=== PATIENT | male | born 1960 | race Caucasian/White ===

== ENCOUNTER → 2016-11-29 | Outpatient (CLI) | payer BC, OTHER ==
[~2016-11-29] MED LIST: ALBUAER2 INH; CRG40 PO; LSX20 PO
--- NOTE | 2016-11-29 15:44 | DIAGNOSTIC IMAGING REPORT ---
CT OF THE CHEST WITHOUT IV CONTRAST CLINICAL HISTORY: Dyspnea on exertion. Sarcoidosis. Pulmonary nodule. COMPARISON STUDY: Chest CT October 28, 2012 and PET/CT November 13, 2012 CT DOSE: 301.32 mGy.cm TECHNIQUE: Axial images of the chest were obtained without IV contrast. Images were reviewed in the axial, sagittal, and coronal planes. IV contrast was not administered for this examination. FINDINGS: There are multiple minimally enlarged partially calcified mediastinal and bilateral hilar lymph nodes which are similar to exam of October 28, 2012. The size of the heart is normal. There is no pericardial effusion. The central airways are patent. Note is again made of bilateral upper lobe perihilar mass-like opacities with architectural distortion. Innumerable nodules throughout both lungs are noted. The appearance is similar to exam of October 28, 2012. No superimposed consolidation is present. There is no pneumothorax or pleural effusion. Bony thorax is unremarkable. There is bilateral gynecomastia. Visualized portions of the upper abdomen demonstrate stable moderate splenomegaly. There are upper abdominal collaterals. The liver is cirrhotic. Nodularity liver is again noted. Sensitivity for detection of hepatic lesions is diminished on this unenhanced exam. Multiple mildly enlarged upper abdominal lymph nodes remain unchanged. IMPRESSION: 1. No significant change in appearance of the chest since exam of October 28, 2012 with bilateral upper lobe mass-like opacities suggestive of progressive massive fibrosis, architectural distortion and nodules throughout both lungs. The findings are consistent with the history of sarcoidosis. 2. No change in minimally enlarged partially calcified mediastinal and bilateral hilar lymph nodes. 3. Cirrhosis with evidence of portal hypertension including splenomegaly and varices formation. Sensitivity for detection of hepatic lesions is diminished on this unenhanced exam but none are identified. Electronically signed by: Jeremi Quiroz M.D. 11/29/2016 3:42 PM
--- NOTE | 2016-12-01 09:51 | ECHOCARDIOGRAM REPORT ---
*NOTICE TO RECEIVING [employer] This information is strictly Confidential and protected under [place] law. [place] law prohibits you from making any further disclosure of this information unless further disclosure is expressly permitted by the written consent of the person to whom it pertains or is authorized by law. A general authorization for the release of medical or other information is not sufficient for this purpose. Hospital accepts no responsibility if the information is made available to any other person, INCLUDING THE PATIENT. Interpretation Summary * Name: SHERRY QUIÑONEZ Study Date: 11/29/2016 02:00 PM BP: 138/74 mmHg * Patient Location: [facility] HR: 71 * : 1960 (M/d/yyyy) Gender: Male Height: 67 in * Age: 56 yrs Ethnicity: [place] Weight: 175 lb * Ordering Physician: Tito Martins * Referring Physician: Tito Martins. * Performed By: Lizbeth Johnson RCS * * Reason For Study: ADEN / SARCOIDOSIS / ALCOHOLIC LIVER DAMAGE / EVAL FOR HEPATOPULMONARY SYNDROME * BSA: 1.9 m2 * -- Conclusions -- * Injection of contrast documented no interatrial shunt. * Bubble contrast appears in the left atrium on the 8th beat (generally appears within 7 beats in hepatopulmonary syndrome). Procedure Details * A complete two-dimensional transthoracic echocardiogram was performed (2D, M-mode, Doppler and color flow Doppler). * A saline contrast injection was performed to assess for cardiac shunting. * The injection was performed through an intravenous line in the right arm. * The attending nurse who injected the saline contrast was LIMA PERALTA CPL, RN. * A total of 30 cc of agitated saline was given. Left Ventricle * The left ventricle is normal in size. * There is moderate concentric left ventricular hypertrophy. * Left ventricular systolic function is normal. * Ejection Fraction = 60-65%. * The left ventricular wall motion is normal. Right Ventricle * The right ventricle is mildly dilated. * The right ventricular systolic function is normal. Atria * The left atrial size is normal. * The right atrium is mildly dilated. * Injection of contrast documented no interatrial shunt. * Bubble contrast appears in the left atrium on the 8th beat (generally appears within 7 beats in hepatopulmonary syndrome). Mitral Valve * The mitral valve is normal in structure and function. * There is no mitral regurgitation noted. Tricuspid Valve * The tricuspid valve is normal in structure and function. * There is mild tricuspid regurgitation. * Right ventricular systolic pressure is elevated at 30-40mmHg. Aortic Valve * The aortic valve is trileaflet. * Aortic valve sclerosis mild, without significant aortic valvular stenosis. * No aortic regurgitation is present. Pulmonic Valve * The pulmonary valve is not well seen, but the Doppler examination is normal without significant regurgitation or stenosis. * Mild pulmonic valvular regurgitation. Great Vessels * Aortic arch of normal dimension. * No obvious dissection could be visualized. * The pulmonary artery is normal size. Pericardium/Pleural * There is no pericardial effusion. Right Ventricle * The right ventricular wall motion is normal. Great Vessels * Normal inferior vena cava diameter and respiratory variation suggests normal central venous pressure. Left Ventricular Diastolic Function * Grade I diastolic dysfunction, (abnormal relaxation pattern). MMode 2D Measurements and Calculations IVSd 1.4 cm IVSs 1.5 cm LVIDd 4.4 cm LVIDs 2.9 cm LVPWd 0.92 cm LVPWs 1.4 cm IVS/LVPW 1.5 FS 34.6 % EDV(Teich) 89.1 ml ESV(Teich) 32.2 ml EF(Teich) 63.9 % EDV(cubed) 87.0 ml ESV(cubed) 24.4 ml EF(cubed) 72.0 % % IVS thick 5.5 % % LVPW thick 54.9 % LV mass(C)d 186.2 grams LV mass(C)dI 97.5 grams/m\S\2 LV mass(C)s 144.3 grams LV mass(C)sI 75.5 grams/m\S\2 SV(Teich) 56.9 ml SI(Teich) 29.8 ml/m\S\2 SV(cubed) 62.6 ml SI(cubed) 32.8 ml/m\S\2 Ao root diam 3.9 cm Ao root area 11.7 cm\S\2 ACS 2.3 cm LA dimension 3.6 cm LA/Ao 0.93 LVOT diam 2.0 cm LVOT area 3.3 cm\S\2 LVAd ap4 40.7 cm\S\2 LVLd ap4 9.2 cm EDV(MOD-sp4) 145.6 ml EDV(sp4-el) 153.2 ml LVAs ap4 22.2 cm\S\2 LVLs ap4 7.0 cm ESV(MOD-sp4) 58.4 ml ESV(sp4-el) 60.0 ml EF(MOD-sp4) 59.9 % EF(sp4-el) 60.8 % LVAd ap2 37.2 cm\S\2 LVLd ap2 8.9 cm EDV(MOD-sp2) 128.3 ml EDV(sp2-el) 131.8 ml LVAs ap2 18.3 cm\S\2 LVLs ap2 6.4 cm ESV(MOD-sp2) 44.8 ml ESV(sp2-el) 44.5 ml EF(MOD-sp2) 65.1 % EF(sp2-el) 66.2 % LVLd %diff -2.90 % EDV(MOD-bp) 137.7 ml LVLs %diff -9.23 % ESV(MOD-bp) 53.5 ml EF(MOD-bp) 61.2 % SV(MOD-sp4) 87.1 ml SI(MOD-sp4) 45.6 ml/m\S\2 SV(MOD-sp2) 83.6 ml SI(MOD-sp2) 43.7 ml/m\S\2 SV(MOD-bp) 84.2 ml SI(MOD-bp) 44.1 ml/m\S\2 SV(sp4-el) 93.2 ml SI(sp4-el) 48.8 ml/m\S\2 SV(sp2-el) 87.3 ml SI(sp2-el) 45.7 ml/m\S\2 Doppler Measurements and Calculations MV E max mark 83.0 cm/sec MV A max mark 92.7 cm/sec MV E/A 0.90 MV P1/2t max mark 86.3 cm/sec MV P1/2t 82.2 msec MVA(P1/2t) 2.7 cm\S\2 MV dec slope 307.5 cm/sec\S\2 MV dec time 0.33 sec Ao V2 max 164.4 cm/sec Ao max PG 10.8 mmHg Ao max PG (full) 4.2 mmHg GARTH(V,A) 2.6 cm\S\2 GARTH(V,D) 2.6 cm\S\2 LV V1 max PG 6.6 mmHg LV V1 max 128.6 cm/sec PA V2 max 110.6 cm/sec PA max PG 4.9 mmHg PI max mark 173.0 cm/sec PI max PG 12.0 mmHg PI dec slope 238.5 cm/sec\S\2 PI P1/2t 212.5 msec TR max mark 283.0 cm/sec
== END | disposition home or self-care (01) ==
LOC: C.CTS 12:06
PROVIDERS: ATTEND Internal Medicine Critical Care Medicine
DX: D86.9 Sarcoidosis, unspecified (principal); K70.9 Alcoholic liver disease, unspecified; R06.09 Other forms of dyspnea; J18.9 Pneumonia, unspecified organism; R91.8 Other nonspecific abnormal finding of lung field; K74.60 Unspecified cirrhosis of liver; R16.1 Splenomegaly, not elsewhere classified